=== PATIENT | male | born 1985 | race Caucasian/White ===

== ENCOUNTER 2021-08-23 13:18 | Emergency (ER) | payer SELFPAY ==
[~2021-08-23] VITALS: Ht 175.3 cm; Wt 88.0 kg
--- NOTE | 2021-08-23 13:49 | PHYS DOC ---
Past Medical History Past Medical History: No Pertinent History Past Surgical History: No Surgical History Smoking Status: Current Every Day Smoker Alcohol Use: Occasionally Drug Use: Marijuana General Adult EDM: Chief Complaint: HIP PAIN HPI: HPI: Patient is a 36-year-old male that presents today with a 2-month long complaint of right hip pain. Patient states pain happens when he is trying to put on pants or walking. Patient does not recall an injury at this time, states that 2 years ago he pulled a muscle in his back while moving a pool table, was told that he was a strain he never had follow-up for that. Patient states currently he works at [employer] does a lot of lifting and this bothers him quite a bit. Patient denies back pain denies any bowel or bladder issues at this time. Review of Systems: Review of Systems: Constitutional: Denies fever or chills. [] Eyes: Denies change in visual acuity. [] HENT: Denies nasal congestion or sore throat. [] Respiratory: Denies cough or shortness of breath. [] Cardiovascular: Denies chest pain or edema. [] GI: Denies abdominal pain, nausea, vomiting, bloody stools or diarrhea. [] : Denies dysuria. [] Musculoskeletal: right hip pain Integument: Denies rash. [] Neurologic: Denies headache, focal weakness or sensory changes. [] Endocrine: Denies polyuria or polydipsia. [] Lymphatic: Denies swollen glands. [] Psychiatric: Denies depression or anxiety. [] Heart Score: C/O Chest Pain: N/A Risk Factors: Risk Factors: DM, Current or recent (<one month) smoker, HTN, HLP, family history of CAD, obesity. Risk Scores: Score 0 - 3: 2.5% MACE over next 6 weeks - Discharge Home Score 4 - 6: 20.3% MACE over next 6 weeks - Admit for Clinical Observation Score 7 - 10: 72.7% MACE over next 6 weeks - Early Invasive Strategies Current Medications: Advil prn Allergies: Allergies: nkda Physical Exam: PE: Constitutional: Well developed, well nourished, no acute distress, non-toxic appearance. [] HENT: Normocephalic, atraumatic, bilateral external ears normal, oropharynx moist, no oral exudates, nose normal. [] Eyes: PERRLA, EOMI, conjunctiva normal, no discharge. [] Neck: Normal range of motion, no tenderness, supple, no stridor. [] Cardiovascular:Heart rate regular rhythm, no murmur [] Lungs & Thorax: Bilateral breath sounds clear to auscultation [] Abdomen: Bowel sounds normal, soft, no tenderness, no masses, no pulsatile masses. [] Skin: vitiligo noted on right hip. Back: No tenderness with palpation Extremities: right leg full ROM, no sensory deficits noted, pulses intact distal to injury. no rash for skin break down noted. tenderness noted over greater trochanter Neurologic: Alert and oriented X 3, normal motor function, normal sensory function, no focal deficits noted. [] Psychologic: Affect normal, judgement normal, mood normal. [] EKG: EKG: [] Radiology/Procedures: Radiology/Procedures: [PROCEDURE: HIP RIGHT 2V WITH PELVIS EXAM: Pelvis and right hip, 2 views. HISTORY: Pain. COMPARISON: None. FINDINGS: A frontal view the pelvis and frog-leg view of the right hip are obtained. There is no fracture, dislocation or subluxation. The femoral heads are normal in consideration. IMPRESSION: No acute osseous finding. Electronically signed by: Rosibel Zheng MD (08/23/2021 2:12 PM) [id number]] Course & Med Decision Making: Course & Med Decision Making Pertinent Imaging studies reviewed. (See chart for details) Spoke to patient regarding radiology results, patient informed results were negative but patient may need further radiological exams done on an outpatient basis if pain continues. Patient will be given hip stretches, instructed to ice 20 minutes on 3-4 times a day, take ibuprofen as labeled directed for pain, and to follow-up with primary care physician in 3 to 5 days. Patient is given a list of clinics and primary care physicians here at [facility] for follow-up. Patient verbalized understanding of instructions. Julieth Disclaimer: Julieth Disclaimer: This electronic medical record was generated, in whole or in part, using a voice recognition dictation system. Departure Departure Impression: Primary Impression: Hip pain, right Disposition: HOME / SELF CARE / HOMELESS Condition: STABLE Referrals: NO PCP (PCP) Patient Instructions: Hip Exercises, Generic, SportsMed, Hip Pain Additional Instructions: Take [id number] ibuprofen and/or Tylenol as labeled directed for pain Ice 20 minutes on 3-4 times daily as needed for pain follow up with your primary care physician in 5 to 7 days if no better for outpatient follow-up [employer] Aug 23, 2021 13:49
[2021-08-23 13:50] VITALS: BP 101/65
--- NOTE | 2021-08-23 14:14 | RAD ---
EXAM: Pelvis and right hip, 2 views. HISTORY: Pain. COMPARISON: None. FINDINGS: A frontal view the pelvis and frog-leg view of the right hip are obtained. There is no frac ture, dislocation or subluxation. The femoral heads are normal in consideration. IMPRESSION: No acute osseous finding. Electronically signed by: Rosibel Zheng MD (08/23/2021 2:12 PM) [id number]
[2021-08-23] MEDS ORDERED: KETOROLAC 60 MG/2 ML VIAL. IM ONE (14:30)
== END 2021-08-23 14:58 | disposition home or self-care (01) ==
LOC: ER 13:18
DX: M25.551 Pain in right hip (principal); L80 Vitiligo; F17.200 Nicotine dependence, unspecified, uncomplicated
CPT/HCPCS: 73502; 96372; 99283; J1885